=== PATIENT | male | born 1985 | race Hispanic/Latino ===

== ENCOUNTER 2016-11-03 08:11 | Emergency (ER) | payer OTHER ==
[2016-11-03 08:30] VITALS: RESP 18; BMI 25.1
[2016-11-03] MEDS ORDERED: Morphine 4 mg/ml ISec IM STA (08:46)
[2016-11-03] MEDS ORDERED: Sodium Chloride 0.9% 1,000 ML IV STA (08:48)
--- NOTE | 2016-11-03 08:52 | ED PDOC ---
Arrival/HPI - General Chief Complaint: Male Genitourinary Time Seen by Provider: 11/03/16 08:32 Historian: Patient - History of Present Illness Narrative History of Present Illness (Text): 11/03/16 08:41 A 30 year old male, whose past medical history includes bilateral inguinal hernia repair, who presents to the emergency department complaining of severe right testicular pain that radiated up to the lower back. Patient report the pain began earlier today and is describes as a tight pain. He notes associated dysuria but denies any fever, chills, nausea ,vomiting, abdominal pain, trauma, or any other complaints at this time. No hematuria. Patient mentions that his PMD told him he has some blood in the urine about a month ago. PMD: Dr. Younger Time/Duration: 1-3 hours Symptom Onset: Sudden Symptom Course: Unchanged Quality: Tightness Activities at Onset: Rest Context: Home Past Medical History - Provider Review Nursing Documentation Reviewed: Yes - Infectious Disease Hx of Infectious Diseases: None - Tetanus Immunization Tetanus Immunization: Up to Date - Past Medical History Past Medical History: No Previous - Cardiac Hx Pacemaker: No - Neurological Hx Paralysis: No - Hematological/Oncological Hx Blood Transfusions: No Hx Blood Transfusion Reaction: No - Musculoskeletal/Rheumatological Hx Musculoskeletal Disorders: No - Gastrointestinal Hx Gastrointestinal Disorders: Yes Other/Comment: Right and Left groin hernia - Psychiatric Hx Emotional Abuse: No Hx Physical Abuse: No Hx Substance Use: No - Past Surgical History Past Surgical History: No Previous - Surgical History Other/Comment: hernia surgery - Anesthesia Hx Anesthesia Reactions: No Hx Malignant Hyperthermia: No - Suicidal Assessment Feels Threatened In Home Enviroment: No Family/Social History - Physician Review Nursing Documentation Reviewed: Yes Family/Social History: Unknown Family HX Smoking Status: Never Smoked Hx Alcohol Use: Yes (SOCIAL) Hx Substance Use: No Allergies/Home Meds Allergies/Adverse Reactions: Allergies No Known Allergies Allergy (Verified 11/03/16 08:26) Review of Systems - Physician Review All systems were reviewed & negative as marked: Yes - Review of Systems Constitutional: absent: Fevers, Other (trauma) Gastrointestinal: absent: Abdominal Pain, Nausea, Vomiting Genitourinary Male: Dysuria, Other (penile pain) Musculoskeletal: Back Pain Physical Exam Vital Signs Reviewed: Yes Vital Signs Temp Pulse Resp BP Pulse Ox 11/03/16 12:09 98.1 F 71 18 135/85 100 11/03/16 08:30 97.9 F 73 18 134/81 99 Temperature: Afebrile Blood Pressure: Normal Pulse: Regular Respiratory Rate: Normal Appearance: Positive for: Well-Appearing, Non-Toxic, Comfortable Pain Distress: None Mental Status: Positive for: Alert and Oriented X 3 - Systems Exam Head: Present: Atraumatic, Normocephalic Pupils: Present: PERRL Extroacular Muscles: Present: EOMI Conjunctiva: Present: Normal Mouth: Present: Moist Mucous Membranes Neck: Present: Normal Range of Motion Respiratory/Chest: Present: Clear to Auscultation, Good Air Exchange. No: Respiratory Distress, Accessory Muscle Use Cardiovascular: Present: Regular Rate and Rhythm, Normal S1, S2. No: Murmurs Abdomen: Present: Tenderness (right lower quadrant), Normal Bowel Sounds, Guarding. No: Distention, Peritoneal Signs, Rebound, Hernias Genitourinary Male: Present: Normal External Genitalia, Testicle Tenderness ( right). No: Lesions, Penile Discharge, Penile Swelling, Masses, Erythema, Hernias, Testicle Swelling Back: Present: CVA Tenderness (right). No: Midline Tenderness Upper Extremity: Present: Normal Inspection. No: Cyanosis, Edema Lower Extremity: Present: Normal Inspection. No: Edema Neurological: Present: GCS=15, CN II-XII Intact, Speech Normal Skin: Present: Warm, Dry, Normal Color. No: Rashes Psychiatric: Present: Alert, Oriented x 3, Normal Insight, Normal Concentration Medical Decision Making ED Course and Treatment: 11/03/16 08:41 Impression: A 30 year old male with penile pain radiating up to the lower back. Differential Diagnosis include but are not limited to: nephrolithiasis vs. appendicitis vs. testicular torsion vs. STD Plan: -- Abdomen/Pelvis CT -- Testes Duplex Ultrasound -- Labs -- Urinalysis -- Chlamydia/GC RNA -- Morphine, Toradol and IV Fluids -- Reassess and disposition Progress Notes: 11/03/16 09:39 Testes Duplex ultrasound preliminary reading shows hydrocele bilateral with good Doppler flow and no torsion. 11/03/16 10:30 Abdomen/Pelvis CT: Creator : Rj Barakat MD COMPARISON: None. FINDINGS: LOWER THORAX: Unremarkable. LIVER: Unremarkable. No gross lesion or ductal dilatation. GALLBLADDER AND BILE DUCTS: Unremarkable. PANCREAS: Unremarkable. No gross lesion or ductal dilatation. SPLEEN: Unremarkable. ADRENALS: Unremarkable. No mass. KIDNEYS AND URETERS: There is a 3 mm stone in the right UVJ near the internal orifice. There is only mild hydronephrosis. There is no perinephric stranding. The finding is seen on axial image 144 series 2 and coronal image 69 series 601 VASCULATURE: Unremarkable. No aortic aneurysm. BOWEL: Unremarkable. No obstruction. No gross mural thickening. APPENDIX: Unremarkable. Normal appendix. PERITONEUM: Unremarkable. No free fluid. No free air. LYMPH NODES: Unremarkable. No enlarged lymph nodes. BLADDER: Unremarkable. REPRODUCTIVE: Unremarkable. BONES: No acute fracture. OTHER FINDINGS: None. IMPRESSION: 3 mm right UVJ stone near the internal orifice 11/03/16 12:51 Labs show WBC 14. Patient denies any fever, chills or bodyaches. UA negative for UTI. No need for antibiotics as this time. Patient's pain is controlled. He no longer has pain. I discussed case with Dr. Gould, Urology, who will see patient as an outpatient. We agreed to discharge patient home with motrin for pain and percocet for breakthrough pain. I explained the side effects of both. I also will prescribe him flomax and explained side effects. He was advised to return to the ED if symptoms worsen or any other concern. - Lab Interpretations Lab Results: 11/03/16 10:10 11/03/16 10:10 Lab Results 11/03/16 11:50: Blood Type Confirm O POSITIVE 11/03/16 11:18: Urine Color Yellow, Urine Appearance Sl cloudy, Urine pH 7.0, Ur Specific [place] 1.010, Urine Protein Negative, Urine Glucose (UA) 250 H, Urine Ketones Negative, Urine Blood Moderate H, Urine Nitrate Negative, Urine Bilirubin Negative, Urine Urobilinogen 0.2, Ur Leukocyte Esterase Negative, Urine RBC 5 - 10, Urine WBC 2 - 5, Ur Epithelial Cells 3 - 4, Urine Bacteria Few 11/03/16 10:10: Blood Type O POSITIVE, Antibody Screen Negative, BBK History Checked No verified bt 11/03/16 10:10: Sodium 138, Potassium 4.0, Chloride 97 L, Carbon Dioxide 31, Anion Gap 14, BUN 21, Creatinine 1.0, Est GFR ( Amer) > 60, Est GFR (Non- Af Amer) > 60, Random Glucose 172 H, Calcium 9.9, Total Bilirubin 0.8, AST 21, ALT 28, Alkaline Phosphatase 63, Total Protein 8.4 H, Albumin 4.7, Globulin 3.6 , Albumin/Globulin Ratio 1.3 11/03/16 10:10: PT 12.0 H, INR 1.11 H, APTT 25.7 11/03/16 10:10: WBC 14.5 H D, RBC 5.12, Hgb 14.8, Hct 43.3, MCV 84.6, MCH 28.9, MCHC 34.2, RDW 12.2, Plt Count 203, MPV 11.7 H, Gran % 90.7 H, Lymph % (Auto) 4.7 L, Hodgeman % (Auto) 4.3, Eos % (Auto) 0.1 L, Baso % (Auto) 0.2, Gran # 13.17 H , Lymph # 0.7 L, Hodgeman # 0.6, Eos # 0.0, Baso # 0.03 I have reviewed the lab results: Yes - RAD Interpretation Radiology Orders: 11/03/16 08:47 TESTES DUPLEX COMPLETE [US] Stat 11/03/16 08:49 ABD & PELVIS W/O PO OR IV CONT [CT] Stat - Medication Orders Current Medication Orders: Discontinued Medications Sodium Chloride (Sodium Chloride 0.9%) 1,000 mls @ 999 mls/hr IV .Q1H1M STA Stop: 11/03/16 09:48 Last Admin: 11/03/16 09:50 Dose: 999 mls/hr Ketorolac Tromethamine (Toradol) 60 mg IM STAT STA Stop: 11/03/16 08:48 Last Admin: 11/03/16 08:52 Dose: 60 mg Morphine Sulfate (Morphine) 4 mg IM STAT STA Stop: 11/03/16 08:47 Last Admin: 11/03/16 08:52 Dose: 4 mg - Scribe Statement The provider has reviewed the documentation as recorded by the Walt Mcintyre Provider Scribe Attestation: All medical record entries made by the Tomaszibmissy were at my direction and personally dictated by me. I have reviewed the chart and agree that the record accurately reflects my personal performance of the history, physical exam, medical decision making, and the department course for this patient. I have also personally directed, reviewed, and agree with the discharge instructions and disposition. Disposition/Present on Arrival - Present on Arrival Any Indicators Present on Arrival: No History of DVT/PE: No History of Uncontrolled Diabetes: No Urinary Catheter: No History of Decub. Ulcer: No History Surgical Site Infection Following: None - Disposition Have Diagnosis and Disposition been Completed?: Yes Diagnosis: Kidney stone Disposition: HOME/ ROUTINE Disposition Time: 13:01 Patient Plan: Discharge Patient Problems: Current Active Problems Problem Status Onset Kidney stone Acute Condition: IMPROVED Discharge Instructions (ExitCare): Kidney Stones (ED) Additional Instructions: Mr Bryant, thank you for letting us take care of you today. Your provider was Dr. Lamb. You were treated for Kidney stone. The emergency medical care you received today was directed at your acute symptoms. If you were prescribed any medication, please fill it and take as directed. It may take several days for your symptoms to resolve. Return to the Emergency Department if your symptoms worsen, do not improve, or if you have any other problems. Please contact your doctor or call one of the physicians/clinics you have been referred to that are listed on the Patient Visit Information form that is included in your discharge packet. Bring any paperwork you were given at discharge with you along with any medications you are taking to your follow up visit. Our treatment cannot replace ongoing medical care by a primary care provider (PCP) outside of the emergency department. Make sure to follow up with Dr. Gould. Call to make an appointment. Thank you for allowing the [facility] team to be part of your care today. If you had an X-Ray or CT scan: A Radiologist will review the ED reading if any change in treatment is needed we will contact you. If you had a blood, urine, or wound culture: It will take several days for the results, if any change in treatment is needed we will contact you. If you had an STI test: It will take 48 hours for the results. Please call after 1 week if you have not heard back. Prescriptions: Ibuprofen [Motrin] 600 mg PO Q6 PRN #30 tab PRN Reason: Pain, Moderate (4-7) oxyCODONE/Acetaminophen [Percocet 5/325 mg Tab] 1 ea PO Q6 PRN #20 tab PRN Reason: Pain, Moderate (4-7) Tamsulosin [Flomax] 0.4 mg PO DAILY #30 cap Referrals: Vladimir Younger MD [Primary Care Provider] - Follow up with primary Edmar Gould MD [Staff Provider] - Follow up with primary Forms: [employer] (Urdu), WORK NOTE
[2016-11-03 10:12] LABS: ADD MANUAL DIFF? NO
[2016-11-03 10:22] LABS: BASO # 0.03 K/mm3 (0.0-2.0); BASO % 0.2 % (0.0-3.0); EOS % 0.1 % (1.5-5.0); GRAN # 13.17 (1.4-6.5); GRAN % 90.7 % (50.0-68.0); HEMATOCRIT 43.3 % (42.0-52.0); LYMPH # 0.7 (1.2-3.4); LYMPH % 4.7 % (22.0-35.0); MEAN CELL VOLUME 84.6 fL (80.0-105.0); MEAN CORPUSCULAR HEMOGLOBIN 28.9 pg (25.0-35.0); MEAN CORPUSCULAR HGB CONC 34.2 g/dl (31.0-37.0); MEAN PLATELET VOLUME 11.7 fl (7.0-11.0); MONO # 0.6 (0.1-0.6); MONO % 4.3 % (1.0-6.0); PLATELET COUNT 203 10^3/uL (120.0-450.0); RED CELL DISTRIBUTION WIDTH 12.2 % (11.5-14.5); WHITE BLOOD COUNT 14.5 10^3/ul (4.5-11.0)
[2016-11-03 10:25] LABS: ALB/GLOB RATIO 1.3 (1.1-1.8); ALKALINE PHOSPHATASE 63 U/L (38-133); ALT/SGPT 28 U/L (7-56); AST/SGOT 21 U/L (15-59); BILIRUBIN,TOTAL 0.8 mg/dL (0.2-1.3); BLOOD UREA NITROGEN 21 mg/dL (7-21); CALCIUM 9.9 mg/dL (8.4-10.5); CARBON DIOXIDE 31 mmol/L (21-33); CHLORIDE 97 mmol/L (98-107); GFR AFRICAN-AMERICAN > 60; GLUCOSE,RANDOM 172 mg/dL (70-110); SODIUM 138 mmol/L (132-148); TOTAL PROTEIN 8.4 g/dL (5.8-8.3)
[2016-11-03 10:26] LABS: INR 1.11 (0.93-1.08); PARTIAL THROMBOPLASTIN TIME 25.7 Seconds (23.7-30.8)
--- NOTE | 2016-11-03 10:28 | CT ---
PROCEDURE: CT Abdomen and Pelvis without intravenous contrast HISTORY: R abd/flank/testicular pain r/o stone vs appy COMPARISON: None. TECHNIQUE: Without contrast. Contrast Dose: Radiation dose: Total exam DLP = 378 mGy-cm. This CT exam was performed using one or more of the following dose reduction techniques: Automated exposure control, adjustment of the mA and/or kV according to patient size, and/or use of iterative reconstruction technique. FINDINGS: LOWER THORAX: Unremarkable. LIVER: Unremarkable. No gross lesion or ductal dilatation. GALLBLADDER AND BILE DUCTS: Unremarkable. PANCREAS: Unremarkable. No gross lesion or ductal dilatation. SPLEEN: Unremarkable. ADRENALS: Unremarkable. No mass. KIDNEYS AND URETERS: There is a 3 mm stone in the right UVJ near the internal orifice. There is only mild hydronephrosis. There is no perinephric stranding. The finding is seen on axial image 144 series 2 and coronal image 69 series 601 VASCULATURE: Unremarkable. No aortic aneurysm. BOWEL: Unremarkable. No obstruction. No gross mural thickening. APPENDIX: Unremarkable. Normal appendix. PERITONEUM: Unremarkable. No free fluid. No free air. LYMPH NODES: Unremarkable. No enlarged lymph nodes. BLADDER: Unremarkable. REPRODUCTIVE: Unremarkable. BONES: No acute fracture. OTHER FINDINGS: None. IMPRESSION: 3 mm right UVJ stone near the internal orifice
[2016-11-03 11:33] LABS: URINE BILIRUBIN NEGATIVE (NEGATIVE); URINE BLOOD MODERATE (NEGATIVE); URINE GLUCOSE (UA) 250 mg/dL (NEGATIVE); URINE KETONE NEGATIVE (NEGATIVE); URINE LEUKOCYTE ESTERASE NEGATIVE Leu/uL (NEGATIVE); URINE PROTEIN NEGATIVE mg/dL (<30 mg/dL); URINE UROBILINOGEN 0.2 E.U./dL (<1 E.U./dL)
[2016-11-03 11:39] LABS: URINE APPEARANCE SL CLOUDY (CLEAR); URINE COLOR YELLOW (YELLOW)
[2016-11-03 12:08] LABS: URINE BACTERIA FEW (NEG)
[2016-11-03 12:09] VITALS: O2SAT 100
[2016-11-03 12:51] VITALS: BP 133/79; PULSE 68; TEMP 98
--- NOTE | 2016-11-03 13:17 | US ---
HISTORY: Right Testicular/Groin pain r/o torsion TECHNIQUE: Realtime sonography through the scrotum with color and doppler flow. COMPARISON: None Available. FINDINGS: RIGHT TESTICLE: Measures 2.8 x 3 x 5.0 cm. Normal echotexture and flow. RIGHT EPIDIDYMIS: Epididymal head measures 0.9 cm. Grossly unremarkable appearance with normal flow. LEFT TESTICLE: Measures 2.8 x 3 x 5.0 cm. Normal echotexture and flow. LEFT EPIDIDYMIS: Epididymal head measures 0.9 cm. Grossly unremarkable appearance with normal flow. HYDROCELE: Small bilateral approximately symmetrical. VARICOCELE: None. OTHER FINDINGS: None. IMPRESSION: Negative study for epididymitis, orchitis, torsion. Additional benign and/or incidental findings described above.
== END 2016-11-03 13:23 | disposition home or self-care (01) ==
LOC: ED 08:11
DX: N20.0 Calculus of kidney (principal)
CPT/HCPCS: 74176; 80053; 81001; 85025; 85610; 85730; 86850; 86900; 87086; 87491; 87591; 93975; 96360; 96372; 99283; J1885; J2270; J7040

== ENCOUNTER 2017-02-15 13:30 | Emergency (ER) | payer OTHER ==
[2017-02-15 13:34] VITALS: BMI 24.7
[2017-02-15 13:38] VITALS: TEMP 98.4
--- NOTE | 2017-02-15 14:07 | ED PDOC ---
Arrival/HPI - General Historian: Patient - History of Present Illness Time/Duration: Other (9 days) Context: Other (stadium) - General Chief Complaint: Finger,Hand,&Wrist Time Seen by Provider: 02/15/17 14:02 - History of Present Illness Narrative History of Present Illness (Text): 02/15/17 14:03 This 31 yo male presents to this ED c/o right 4th finger pain x 9 days. Patient stated while celebrating a football game, he missed a "Five High", causing him to hit finger against a hard surface. (Mary Anne David) Past Medical History - Provider Review Nursing Documentation Reviewed: Yes - Infectious Disease Hx of Infectious Diseases: None - Tetanus Immunization Tetanus Immunization: Up to Date - Past Medical History Past Medical History: No Previous - Cardiac Hx Pacemaker: No - Neurological Hx Paralysis: No - Hematological/Oncological Hx Blood Transfusions: No Hx Blood Transfusion Reaction: No - Musculoskeletal/Rheumatological Hx Musculoskeletal Disorders: No - Gastrointestinal Hx Gastrointestinal Disorders: Yes Other/Comment: Right and Left groin hernia - Psychiatric Hx Substance Use: No - Past Surgical History Past Surgical History: No Previous - Surgical History Other/Comment: hernia surgery - Anesthesia Hx Anesthesia Reactions: No Hx Malignant Hyperthermia: No - Suicidal Assessment Feels Threatened In Home Enviroment: No Family/Social History - Physician Review Nursing Documentation Reviewed: Yes Family/Social History: Other (non-contributory) Smoking Status: Never Smoked Hx Alcohol Use: Yes (SOCIAL) Hx Substance Use: No Allergies/Home Meds Allergies/Adverse Reactions: Allergies No Known Allergies Allergy (Verified 11/03/16 08:26) Review of Systems - Review of Systems Constitutional: Normal. absent: Fatigue, Weight Change, Fevers, Night Sweats Eyes: Normal ENT: Normal Respiratory: Normal Cardiovascular: Normal Gastrointestinal: Normal Genitourinary Male: Normal Musculoskeletal: Other (see hpi) Skin: Normal Neurological: Normal Endocrine: Normal Hemo/Lymphatic: Normal Psychiatric: Normal Physical Exam Temperature: Afebrile Blood Pressure: Normal Pulse: Regular Respiratory Rate: Normal Appearance: Positive for: Well-Appearing, Non-Toxic, Comfortable Pain Distress: None Mental Status: Positive for: Alert and Oriented X 3 - Systems Exam Head: Present: Atraumatic, Normocephalic Pupils: Present: PERRL Extroacular Muscles: Present: EOMI Conjunctiva: Present: Normal Mouth: Present: Moist Mucous Membranes Neck: Present: Normal Range of Motion Upper Extremity: Present: Normal ROM, NORMAL PULSES. No: Edema Lower Extremity: Present: Normal Inspection, NORMAL PULSES, Normal ROM, Capillary Refill < 2 s. No: Edema, CALF TENDERNESS Neurological: Present: GCS=15, CN II-XII Intact, Speech Normal, Motor Func Grossly Intact, Normal Sensory Function, Normal Cerebellar Funct, Gait Normal Skin: Present: Warm, Dry, Normal Color. No: Rashes Psychiatric: Present: Alert, Oriented x 3, Normal Insight Vital Signs Temp Pulse Resp BP Pulse Ox 02/15/17 16:00 69 16 144/81 97 02/15/17 13:30 98.4 F 78 18 153/97 H 98 Medical Decision Making Re-evaluation Time: 15:49 Reassessment Condition: Re-examined, Improved ED Course and Treatment: I was available for consultation during PA evaluation. The chart was reviewed by me, and I agree with disposition. The documented history was done by the physician cad cam programmer. The documented procedures were done by the physician cad cam programmer. (Ahsan Thompson) 02/15/17 15:49 Re-evaluation. Patient feels better. Discussed results and plan with patient who expresses understanding. All questions answered and there is agreement with the plan to discharge home with instructions. Patient stable for discharge. Return if symptoms persist or worsen. (Mary Anne David) - RAD Interpretation Narrative RAD Interpretations (Text): 02/15/17 15:49 Accession No. : [id number] Patient Name / ID : OSIRIS MAZA / [id number] Exam Date : 02/15/2017 15:20:52 ( Approved ) Study Comment : Sex / Age : M / 31Y Creator : Rj Barakat MD Dictator : Rj Barakat MD Spring Assembler Supervisor : Wrapping Machine Helper : Rj Barakat MD Approver2 : Report Date : 02/15/2017 15:38:30 My Comment : PROCEDURE: Right Hand Radiographs. HISTORY: finger injury COMPARISON: None. FINDINGS: BONES: There is a displaced intra-articular fracture through the base of the 4th distal phalanx JOINTS: Normal. No osteoarthritic changes. SOFT TISSUES: Normal. OTHER FINDINGS: None. IMPRESSION: There is a displaced intra-articular fracture through the base of the 4th distal phalanx (Mary Anne David) Radiology Orders: 02/15/17 14:02 HAND RIGHT 4TH DIGIT (FINGER) [RAD] Stat Disposition/Present on Arrival - Present on Arrival Any Indicators Present on Arrival: No History of DVT/PE: No History of Uncontrolled Diabetes: No Urinary Catheter: No History of Decub. Ulcer: No History Surgical Site Infection Following: None - Disposition Have Diagnosis and Disposition been Completed?: Yes Disposition Time: 15:50 Patient Plan: Discharge - Disposition Diagnosis: Phalanx, distal fracture of finger Disposition: HOME/ ROUTINE Patient Problems: Current Active Problems Problem Status Onset Phalanx, distal fracture of finger Acute Condition: GOOD Discharge Instructions (ExitCare): Finger Fracture (ED) Additional Instructions: Call private doctor for follow up visit in 1-2 days. Take medication as instructed with food. Do not remove finger splint till evaluated by hand doctor. Return to emergency if symptoms worsen. Prescriptions: Ibuprofen [Motrin] 600 mg PO Q8 PRN #20 tab PRN Reason: Pain, Severe (8-10) Referrals: Vladimir Younger MD [Primary Care Provider] - Follow up with primary Tavon Arellano MD [Staff Provider] - Follow up with primary Forms: [employer] (Macedonian)
--- NOTE | 2017-02-15 15:40 | RAD ---
PROCEDURE: Right Hand Radiographs. HISTORY: finger injury COMPARISON: None. FINDINGS: BONES: There is a displaced intra-articular fracture through the base of the 4th distal phalanx JOINTS: Normal. No osteoarthritic changes. SOFT TISSUES: Normal. OTHER FINDINGS: None. IMPRESSION: There is a displaced intra-articular fracture through the base of the 4th distal phalanx
[2017-02-15 16:19] VITALS: PULSE 69; O2SAT 97
[2017-02-15 20:19] VITALS: BP 144/88; RESP 18
== END 2017-02-15 16:00 | disposition home or self-care (01) ==
LOC: ED 13:30
DX: S62.634A Displaced fracture of distal phalanx of right ring finger, initial encounter for closed fracture (principal); X50.0XXA Overexertion from strenuous movement or load, initial encounter; Y93.89 Activity, other specified; Y92.89 Other specified places as the place of occurrence of the external cause